=== PATIENT | male | born 1985 | race Caucasian/White ===

== ENCOUNTER → 2017-10-05 | Outpatient (CLI) | payer OTHER ==
--- NOTE | 2017-10-05 14:52 | PFTRPT ---
Tech: [employer] Age: 32 Sex: Male Race: Height: 73.00 Inches Weight: 261.00 Lbs BSA: 2.41 Diagnosis: R06.2 PRE TEST COMMENTS: The patient stated he took three puffs of albuterol approximately 6.5 hours prior to today's testing. PULMONARY FUNCTION REPORT ORDERING PROVIDER: Maxine Moran MD DATE OF SERVICE: 10/05/17 SPIROMETRY: Pre and post bronchodilator study of excellent technical. The forced vital capacity is normal. The FEV1 is in proportion. The obstructive index is, therefore, normal. FLOW VOLUME LOOP: The expiratory limb of the flow volume loop is normal. No significant bronchodilator response is identified. LUNG VOLUMES: The total lung capacity is normal. The residual volume is in proportion. DIFFUSION CAPACITY: The diffusion capacity is normal. HEMOGLOBIN: No hemoglobin is available for correction. AIRWAY MECHANICS: Airway resistance is only minimally elevated with a concomitant decrease in airway conductance. IMPRESSION: Probably normal study MTDD
== END ==
LOC: M CARPUL 14:06
PROVIDERS: ATTEND Family Medicine
DX: R06.2 Wheezing (principal)

== ENCOUNTER → 2018-10-27 | Outpatient (REF) | payer OTHER | LOC: M SFHCLERA 19:38 | PROVIDERS: ATTEND Nurse Practitioner Family | DX: J02.9 Acute pharyngitis, unspecified (principal) ==

== ENCOUNTER → 2018-10-27 | Outpatient (CLI) | payer OTHER ==
--- NOTE | 2018-10-27 20:04 | REP ---
Clinical: Chest pain and fever with shortness of breath . Comparison: 12/25/2015 . Technique: PA and lateral. Findings: The mediastinum and cardiac silhouette are normal. The lung piña are clear and without acute consolidation, effusion, or pneumothorax. The skeletal structures are intact and normal. Impression: 1. No acute cardiopulmonary process. Electronically Signed by Kyle Blackmon MD 10/27/2018 07:56 P
== END ==
LOC: M LRY 19:33
PROVIDERS: ATTEND Nurse Practitioner Family
DX: Z87.898 Personal history of other specified conditions (principal)

== ENCOUNTER 2020-01-14 02:04 | Emergency (ER) | payer OTHER ==
[~2020-01-14] VITALS: Ht 182.9 cm; Wt 118.9 kg
[2020-01-14] MEDS ORDERED: OMEP40CA97 PO (02:11)
[2020-01-14 03:33] VITALS: BP 140/89
== END 2020-01-14 03:36 | disposition home or self-care (01) ==
LOC: M ED 02:04
DX: J02.8 Acute pharyngitis due to other specified organisms (principal); Z88.5 Allergy status to narcotic agent; F17.210 Nicotine dependence, cigarettes, uncomplicated; K21.9 Gastro-esophageal reflux disease without esophagitis; Z79.899 Other long term (current) drug therapy

== ENCOUNTER 2020-08-08 01:33 | Emergency (ER) | payer OTHER ==
[~2020-08-08] VITALS: Ht 182.9 cm; Wt 119.1 kg
[2020-08-08 01:33] VITALS: BP 156/98
[~2020-08-08 01:33] MED LIST: OMEP40CA97 PO
== END 2020-08-08 04:58 | disposition left against medical advice (07) ==
LOC: M ED 01:33
DX: Z53.21 Procedure and treatment not carried out due to patient leaving prior to being seen by health care provider (principal)